=== PATIENT | female | born 1990 | race Caucasian/White ===

== ENCOUNTER 2017-12-21 10:22 | Emergency (ER) | payer MEDICAID ==
[2017-12-21] MEDS: ACETAMINOPHEN 500 MG TAB PO (11:51)
[2017-12-21 11:58] LABS: ADD MAN DIFF? NO
[2017-12-21 12:05] LABS: BASOPHILS % 0.4 % (0.0-2.0); EOSINOPHILS # 0.1 10^3/ul (0.0-0.5); EOSINOPHILS % 0.7 % (0.0-7.0); HEMOGLOBIN 11.7 g/dl (12.0-16.0); LYMPHOCYTES # 1.8 10^3/ul (0.8-2.9); LYMPHOCYTES % 23.6 % (15.0-51.0); MEAN CORPUSCULAR HEMOGLOBIN 30.2 pg (29.0-33.0); MEAN CORPUSCULAR HGB CONC 34.4 g/dl (32.0-37.0); MEAN CORPUSCULAR VOLUME 87.9 fl (82.0-101.0); MEAN PLATELET VOLUME 10.1 fl (7.4-10.4); MONOCYTE # 0.3 10^3/ul (0.3-0.9); MONOCYTES % 4.6 % (0.0-11.0); NEUTROPHIL # 5.2 10^3/ul (1.6-7.5); NEUTROPHILS % 69.6 % (39.0-77.0); PLATELET COUNT 221 10^3/UL (140-415); RED BLOOD COUNT 3.87 10^6/ul (4.20-5.40); RED CELL DISTRIBUTION WIDTH 12.6 % (11.5-14.5)
[2017-12-21 12:05] LABS: WHITE BLOOD COUNT 7.5 10^3/ul (4.8-10.8)
[2017-12-21 12:23] LABS: ALANINE AMINOTRANSFERASE 48 IU/L (13-69); ALBUMIN 3.2 g/dl (3.3-4.9); ALKALINE PHOSPHATASE 54 IU/L (42-121); AMYLASE 54 U/L (11-123); ANION GAP 11 (8-16); ASPARTATE AMINO TRANSFERASE 27 IU/L (15-46); BILIRUBIN,INDIRECT 0.3 mg/dl (0-1.1); BILIRUBIN,TOTAL 0.3 mg/dl (0.2-1.3); BLOOD UREA NITROGEN 5 mg/dl (7-20); CALCIUM 9.3 mg/dl (8.4-10.2); CARBON DIOXIDE 27 mmol/L (21-31); CHLORIDE 103 mmol/L (97-110); GLUCOSE 96 mg/dl (70-220); LIPASE 68 U/L (23-300); POTASSIUM 4.2 mmol/L (3.5-5.1); SODIUM 137 mmol/L (135-144); TOTAL PROTEIN 6.1 g/dl (6.1-8.1)
[2017-12-21 12:35] LABS: ADD UMIC YES; UR ASCORBIC ACID NEGATIVE (NEGATIVE); UR BACTERIA FEW /HPF (NONE SEEN); UR BILIRUBIN (Dip) NEGATIVE (NEGATIVE); UR BLOOD (Dip) 2+ mg/dL (NEGATIVE); UR CLARITY SLIGHTLY CLOUDY (CLEAR); UR COLOR YELLOW (YELLOW); UR GLUCOSE (Dip) NEGATIVE (NEGATIVE); UR KETONES (Dip) NEGATIVE (NEGATIVE); UR LEUKOCYTE ESTERASE (Dip) 1+ Leu/ul (NEGATIVE); UR MUCUS MANY /HPF (NONE SEEN); UR NITRITE (Dip) NEGATIVE (NEGATIVE); UR RBC 0 /HPF (0-5); UR SPECIFIC GRAVITY (Dip) 1.021 (1.003-1.030); UR SQUAMOUS EPITHELIAL CELL FEW /HPF (FEW); UR TOTAL PROTEIN (Dip) NEGATIVE (NEGATIVE); UR UROBILINOGEN (Dip) 1+ mg/dL (NEGATIVE); UR WBC 4 /HPF (0-5)
== END 2017-12-21 14:30 | disposition home or self-care (01) ==
LOC: FTE 10:22
DX: O20.9 Hemorrhage in early pregnancy, unspecified (principal); O23.42 Unspecified infection of urinary tract in pregnancy, second trimester; R10.2 Pelvic and perineal pain; Z3A.14 14 weeks gestation of pregnancy
CPT/HCPCS: 76805; 80053; 81001; 81025; 82150; 83690; 84702; 85025; 86900; 86901; 87086; 99284-25

== ENCOUNTER 2018-05-01 22:29 | Outpatient (CLI) | payer MEDICAID ==
[2018-05-01 23:14] LABS: ADD UMIC YES; UR ASCORBIC ACID NEGATIVE (NEGATIVE); UR BACTERIA FEW /HPF (NONE SEEN); UR BILIRUBIN (Dip) NEGATIVE (NEGATIVE); UR BLOOD (Dip) 2+ mg/dL (NEGATIVE); UR CLARITY CLEAR (CLEAR); UR COLOR STRAW (YELLOW); UR GLUCOSE (Dip) NEGATIVE (NEGATIVE); UR KETONES (Dip) NEGATIVE (NEGATIVE); UR LEUKOCYTE ESTERASE (Dip) 1+ Leu/ul (NEGATIVE); UR NITRITE (Dip) NEGATIVE (NEGATIVE); UR RBC 0 /HPF (0-5); UR SPECIFIC GRAVITY (Dip) 1.003 (1.003-1.030); UR TOTAL PROTEIN (Dip) NEGATIVE (NEGATIVE); UR UROBILINOGEN (Dip) NEGATIVE (NEGATIVE); UR WBC 3 /HPF (0-5)
[2018-05-02] MEDS ORDERED: TERBUTALINE 1 ML (01:10)
[2018-05-02] MEDS: TERBUTALINE 1 MG/ML INJ SC (01:23)
== END 2018-05-02 03:14 | disposition home or self-care (01) ==
LOC: OBT 22:29 → L-D 22:29
DX: O47.03 False labor before 37 completed weeks of gestation, third trimester (principal); Z3A.32 32 weeks gestation of pregnancy
CPT/HCPCS: 76817; 76818; 81001

== ENCOUNTER 2018-05-02 15:12 | Inpatient (IN) | payer MEDICAID ==
[~2018-05-02 15:12] MED LIST: OXYTOCIN 30 UNITS/LR 500 ML BAG IV
[2018-05-02] MEDS: LACTATED RINGER'S 1,000 ML IV ×2 (16:06→17:24)
[2018-05-02] MEDS ORDERED: OXYTOCIN 30 UNITS/LR 500 ML IV ×3 (16:50→21:00)
[2018-05-02] MEDS ORDERED: AMPICILLIN 2 GM/NS (PMX) 100 ML (16:50)
[2018-05-02] MEDS ORDERED: CARBOPROST 250 MCG INJ IM ×2 (17:00→21:00)
[2018-05-02] MEDS ORDERED: LIDOCAINE 1% (MPF) 30 ML INJ INJ (17:00)
[2018-05-02 17:02] LABS: ADD MAN DIFF? NO
[2018-05-02 17:03] LABS: BASOPHILS % 0.2 % (0.0-2.0); HEMATOCRIT 34.4 % (37.0-47.0); HEMOGLOBIN 11.3 g/dl (12.0-16.0); LYMPHOCYTES % 7.6 % (15.0-51.0); MEAN CORPUSCULAR HEMOGLOBIN 29.2 pg (29.0-33.0); MEAN CORPUSCULAR HGB CONC 32.8 g/dl (32.0-37.0); MEAN CORPUSCULAR VOLUME 88.9 fl (82.0-101.0); MEAN PLATELET VOLUME 9.6 fl (7.4-10.4); MONOCYTE # 0.7 10^3/ul (0.3-0.9); NEUTROPHIL # 11.5 10^3/ul (1.6-7.5); NEUTROPHILS % 86.4 % (39.0-77.0); PLATELET COUNT 173 10^3/UL (140-415); RED BLOOD COUNT 3.87 10^6/ul (4.20-5.40); RED CELL DISTRIBUTION WIDTH 12.4 % (11.5-14.5)
[2018-05-02 17:03] LABS: WHITE BLOOD COUNT 13.3 10^3/ul (4.8-10.8)
[2018-05-02 17:22] LABS: INR 0.94; PROTIME 12.7 Sec (11.9-14.9)
[2018-05-02 17:23] LABS: PARTIAL THROMBOPLASTIN TIME 30.2 Sec (23.0-35.0)
[2018-05-02] MEDS: AMPICILLIN 2 GM/NS (PMX) 100 ML IVPB (17:25)
[2018-05-02] MEDS: BETAMET NA PHOS/AC(6 MG/ML) 2 ML INJ SYG IM (17:33)
[2018-05-02 18:05] LABS: AMPHETAMINE/METHAMPHETAMINE Negative (NEGATIVE); BARBITURATES Negative (NEGATIVE); BENZODIAZEPINES Negative (NEGATIVE); CANNABINOIDS Negative (NEGATIVE); COCAINE Negative (NEGATIVE); OPIATES Negative (NEGATIVE)
[2018-05-02] MEDS: METHYLERGONOVINE 0.2 MG INJ IM (18:27)
[2018-05-02] MEDS: MISOPROSTOL 200 MCG TAB PR (18:27)
[2018-05-02] MEDS: OXYTOCIN 30 UNITS/LR 500 ML IV ×3 (18:29→20:20)
[2018-05-02 18:33] LABS: HEPATITIS B SURFACE ANTIGEN NEGATIVE (NEGATIVE)
[2018-05-02 18:43] LABS: HIV 1&2 ANTIBODY NEGATIVE (NEGATIVE)
[2018-05-02] MEDS ORDERED: CEFAZOLIN 2 GM/50 ML (PMX) 50 ML IVPB (18:47)
[2018-05-02] MEDS ORDERED: FENTAnyl 50 MCG/ML VIAL (19:13)
[2018-05-02] MEDS ORDERED: MIDAZOLAM 1 MG/ML 2 ML INJ (19:13)
[2018-05-02] MEDS ORDERED: PROPOFOL 20 ML (19:13)
[2018-05-02] MEDS ORDERED: KETOROLAC 30 MG INJ (19:20)
[2018-05-02] MEDS ORDERED: DEXAMETHASONE 4 MG/ML 1 ML INJ (19:20)
[2018-05-02] MEDS ORDERED: METOCLOPRAMIDE 10 MG INJ (19:20)
[2018-05-02] MEDS ORDERED: ONDANSETRON 4 MG INJ (19:20)
[2018-05-02] MEDS: CEFAZOLIN 2 GM/50 ML (PMX) 50 ML IVPB (19:29)
[2018-05-02] MEDS ORDERED: FENTAnyl 50 MCG/ML VIAL IV ×3 (19:30)
[2018-05-02] MEDS ORDERED: ONDANSETRON 4 MG INJ IV ×2 (19:30→21:00)
[2018-05-02] MEDS ORDERED: hydrALAzine 20 MG INJ IV (19:30)
[2018-05-02] MEDS ORDERED: EPHEDrine SULFATE 50 MG/5 ML SYG IV (19:30)
[2018-05-02] MEDS ORDERED: LABETALOL HCL 20MG INJ IV (19:30)
[2018-05-02] MEDS ORDERED: METOCLOPRAMIDE 10 MG INJ IV (19:30)
[2018-05-02] MEDS ORDERED: MEPERIDINE 25 MG INJ IV (19:30)
[2018-05-02] MEDS ORDERED: OXYCODONE/ACETAMINOPHEN (5/325) TAB PO (19:30)
[2018-05-02] MEDS ORDERED: HYDROmorphONE 1 MG/5 ML IV SYRINGE IV ×3 (19:30)
[2018-05-02] MEDS ORDERED: DIPHENHYDRAMINE 50 MG INJ IV ×2 (19:30→21:00)
[2018-05-02] MEDS ORDERED: DEXTROSE 5%-LR 1,000 ML IV (20:31)
[2018-05-02] MEDS ORDERED: MISOPROSTOL 200 MCG TAB PR (21:00)
[2018-05-02] MEDS ORDERED: LANOLIN HPA 1 PKT TOP (21:00)
[2018-05-02] MEDS ORDERED: METHYLERGONOVINE 0.2 MG INJ IM (21:00)
[2018-05-02] MEDS ORDERED: DIBUCAINE 1% 30 GM OINT TOP (21:00)
[2018-05-02] MEDS ORDERED: ACETAMINOPHEN 325 MG TAB PO (21:00)
[2018-05-02] MEDS ORDERED: OXYCODONE/ASPIRIN (4.88/325) TAB PO (21:00)
[2018-05-02] MEDS ORDERED: ZOLPIDEM 5 MG TAB PO (21:00)
[2018-05-02] MEDS ORDERED: SENNA/DOCUSATE NA (8.6MG/50MG) TAB PO (21:00)
[2018-05-02] MEDS: IBUPROFEN 600 MG TAB PO (23:40)
[2018-05-03] MEDS: LACTATED RINGER'S 1,000 ML IV* ×3 (00:27→12:31)
[2018-05-03] MEDS: WITCH HAZEL/GLYCERIN PAD PR (01:52)
[2018-05-03] MEDS: BENZOCAINE 20% 56 ML SPRAY TOP (01:52)
[2018-05-03] MEDS: CEFAZOLIN 2 GM/50 ML (PMX) 50 ML IVPB ×3 (03:58→14:00)
[2018-05-03] MEDS: IBUPROFEN 600 MG TAB PO ×3 (05:36→18:30)
[2018-05-03 06:47] LABS: ADD MAN DIFF? NO
[2018-05-03 06:49] LABS: WHITE BLOOD COUNT 15.1 10^3/ul (4.8-10.8)
[2018-05-03 06:49] LABS: BASOPHILS % 0.1 % (0.0-2.0); HEMATOCRIT 25.4 % (37.0-47.0); HEMOGLOBIN 8.5 g/dl (12.0-16.0); LYMPHOCYTES % 6.8 % (15.0-51.0); MEAN CORPUSCULAR HEMOGLOBIN 29.8 pg (29.0-33.0); MEAN CORPUSCULAR HGB CONC 33.5 g/dl (32.0-37.0); MEAN CORPUSCULAR VOLUME 89.1 fl (82.0-101.0); MEAN PLATELET VOLUME 9.8 fl (7.4-10.4); MONOCYTE # 0.9 10^3/ul (0.3-0.9); MONOCYTES % 6.2 % (0.0-11.0); PLATELET COUNT 177 10^3/UL (140-415); RED BLOOD COUNT 2.85 10^6/ul (4.20-5.40)
[2018-05-03] MEDS: FERROUS SULFATE (EC) 325 MG TAB PO ×2 (12:59→21:28)
[2018-05-03] MEDS: CYANOCOBALAMIN 1000 MCG INJ IM (12:59)
[2018-05-03 17:14] LABS: RAPID PLASMA REAGIN NONREACTIVE (NR)
[2018-05-04] MEDS: IBUPROFEN 600 MG TAB PO ×4 (06:25→17:31)
[2018-05-04] MEDS: MEASLES,MUMPS,RUBELLA VACCINE INJ SC* (09:59)
[2018-05-04] MEDS: FERROUS SULFATE (EC) 325 MG TAB PO ×2 (09:59→13:29)
[2018-05-04] MEDS: DIPHTH/TET/ACEL PERTUSS (ADULT) 0.5 ML VIAL IM* (13:29)
[2018-05-04 13:30] LABS: RUBELLA ANTIBODY - IGG 2.83 index; RUBELLA ANTIBODY - IGM <20.00 AU/mL
== END 2018-05-04 17:45 | disposition home or self-care (01) | DRG 806 ==
LOC: OBT 15:12 → L-D 15:14 → OBT 16:40 → L-D 16:40 → PP1 21:48
PROVIDERS: Obstetrics & Gynecology
PROC: 10E0XZZ Delivery of Products of Conception, External Approach (ICD-10-PCS; principal; 2018-05-02)
DX: O60.14X0 Preterm labor third trimester with preterm delivery third trimester, not applicable or unspecified (principal); D62 Acute posthemorrhagic anemia; Z37.0 Single live birth; O69.81X0 Labor and delivery complicated by cord around neck, without compression, not applicable or unspecified; O99.02 Anemia complicating childbirth; Z3A.32 32 weeks gestation of pregnancy
CPT/HCPCS: 76817; 76818; 80307; 81001; 85025; 85610; 85730; 86592; 86703; 86762; 86850; 86900; 86901; 87340; 88307; 90715; 99464